=== PATIENT | male | born 1995 | race Caucasian/White ===

== ENCOUNTER 2022-07-24 16:37 | Emergency (ER) | payer OTHER, SELFPAY ==
--- NOTE | ~2022-07-24 | XR_ITS ---
XR hand LT min 3V DATE: 07/24/2022 17:59 INDICATION: Hand injury one week ago. Metatarsal swelling TECHNIQUE: 3 views COMPARISON: None FINDINGS: No fracture, dislocation, periosteal reaction or bone destruction is detected. IMPRESSION: Negative Reviewed, dictated and finalized at location A. IMPRESSION: Negative
[2022-07-24 17:05] VITALS: BP 136/86; PULSE 80; RESP 18; TEMP 36.5; O2SAT 96
--- NOTE | 2022-07-24 18:10 | ED_ITS ---
HPI - Extremity Injury (Upper) General Chief Complaint: Extremity Injury, Upper Stated Complaint: left hand pain Time Seen by Provider: 07/24/22 16:49 History of Present Illness HPI narrative: 27-year-old male presents to the emergency room with complaints of left hand pain. Patient states that he and many he attempted to stop a refrigerator from falling backwards onto him. States he hyperextended his left hand. Injury occurred over a week ago. Denies taking any [id number] medications to alleviate his symptoms. Related Data Allergies Allergy/AdvReac Type Severity Reaction Status Date / Time No Known Allergies Allergy Verified 07/24/22 16:38 Review of Systems Review of Systems: CONSTITUTIONAL: Denies fever, chills, or sweats. EYES: Denies visual changes, redness, or discharge. ENT: Denies rhinorrhea, congestion, sore throat, or otalgia. CARDIOVASCULAR: Denies chest pain, palpitations, or edema. RESPIRATORY: Denies cough or dyspnea. GASTROINTESTINAL: Denies abdominal pain, nausea, vomiting, or diarrhea. GENITOURINARY: Denies dysuria or hematuria. SKIN: Denies rash or itching. MUSCULOSKELETAL: Reports left hand pain NEUROLOGIC: Denies headache, numbness, dizziness, or weakness. PSYCHIATRIC: Denies anxiety or depression. Exam Narrative: GENERAL: Well-appearing, well-nourished, no physical limitations, and in no acute distress. HEAD: Normocephalic, atraumatic. EYES: Conjunctivae normal, PERRLA and EOMI. CHEST: Clear to auscultation. No respiratory distress. No wheezes rales or rhonchi. HEART: Regular rate and rhythm. No murmur heard. Normal peripheral pulses. EXTREMITIES: left hand: +TTP over the 3rd and 4th metacarpals with STS. No obvious abnormalities, no ecchymosis, full range of motion. Neurovascular is intact distally SKIN: Warm, dry, no rash. No noted wounds NEURO: No focal deficits. Alert and oriented x3. MAEW. CN's II-XI intact bilaterally, normal gait PSYCH: Cooperative. Normal mood and affect. Course Vital Signs Vital signs: Vital Signs Temperature 36.5 C 07/24/22 17:05 Pulse Rate 80 07/24/22 17:05 Respiratory Rate 18 07/24/22 17:05 Blood Pressure 136/86 07/24/22 17:05 Pulse Oximetry 96 07/24/22 17:05 Temperature 36.5 C 07/24/22 17:05 Pulse Rate 80 07/24/22 17:05 Respiratory Rate 18 07/24/22 17:05 Blood Pressure 136/86 07/24/22 17:05 Pulse Oximetry 96 07/24/22 17:05 Discharge Plan Discharge Clinical Impression: Sprain and strain of left hand Patient Disposition: Home, Self-Care Condition: Stable Instructions: Antibiotic Form, Hand Sprain (ED) Follow-up/Referrals: PHYSICIAN,PACKAGING MECHANIC [Primary Care Provider] - Time of Disposition: 18:19
== END 2022-07-24 18:35 | disposition home or self-care (01) ==
LOC: ANHED 18:30
PROVIDERS: Emergency Provider Nurse Practitioner Family
DX: S63.92XA Sprain of unspecified part of left wrist and hand, initial encounter (principal); T14.90XA Injury, unspecified, initial encounter
CPT/HCPCS: 73130; 99283

== ENCOUNTER 2024-12-21 14:41 | Outpatient (CLI) | payer OTHER, SELFPAY ==
--- OUTSIDE RECORDS SUMMARY | 2024-12-21 14:44 | XMS_ITS | Clinical Summary ---
Author Organization [facility] Address [address] [place] [id number] Care Team Providers Care Night Shift Manager Name Role Phone None, Provider MD Primary Care Provider Unavaila ble Allergies No known active allergies Medications No known medications Family History Medical History Relation Comments Mental Health Mother Thyroid Disease Mother Relation Status Comments Mother Social History Tobacco Use Types Packs/Day Years Used Date Smoking Tobacco: Never Smokeless Tobacco: Never Sex and Gender Information Value Date Recorded Sex Assigned at Male 11/09/2020 10:55 PM CDT Legal Sex Male 4:50 PM CDT Gender Identity Male 11/09/2020 10:55 PM CDT Sexual Orientation Straight 11/09/2020 10 :55 PM CDT Last Filed Vital Signs Vital Sign Reading Time Taken Comments Blood Pressure 141/94 05/20/2023 6:53 PM [employer]ANSIT OPERATIONS SUPERVISOR Pulse 90 05/20/2023 6:53 PM [employer]IT OPERATIONS SUPERVISOR Temperature 36.6 C (97.9 F) 05/20/2023 6:53 PM [employer]IT OPERATIONS SUPERVISOR Respiratory Rate 18 05/20/2023 6:53 PM [employer]IT OPERATIONS SUPERVISOR Oxygen Saturation 98% 05/20/2023 6:53 PM [employer] OPERATIONS SUPERVISOR Inhaled Oxygen Concentration - - Weight 154.2 kg (340 lb) 05/20/2023 6:53 PM [employer]IT OPERATIONS SUPERVISOR Height 193 cm (6' 4) 05/20/2023 6:53 PM TR[employer]IT OPERATIONS SUPERVISOR Body Mass Index 41.39 05/20/2023 6:53 PM [employer]ANSIT OPERATIONS SUPERVISOR Plan of Treatment Health Maintenance Due Date Last Done Comments Annual Physical 2000 Hepatitis C 2015 DTaP, Tdap and Td Vaccines ( 1 - Tdap) 2016 Hepatitis B Vaccines (1 of 3 - 19+ 3-dose series) 2016 COVID-19 Vaccine (2023-2 5 season) 2024 HPV Vaccines (1 - 3-dose SCD M series) 2024 Meningococcal B Vaccine Aged Out No l onger eligible based on patient's age to complete this topic Meningococcal Vaccine Aged Out No rosa cora eligible based on patient's age to complete this topic Pneumococcal Vaccine: Pediat rics (0 to 5 Years) and At-Risk Patients (6 to 49 Years) Aged Out No longer eligible b ased on patient's age to complete this topic RSV Immunizations Under 20 Months Aged Out No longer eligible based on patient's age to complete this topic Insurance Care Teams Night Shift Manager Relationship Specialty Start Date End Date None, Provider, PCP - General 01/31/20
[2024-12-21 18:46] LABS: Hematocrit 43.2 % (42.0-52.0); Hemoglobin 14.7 g/dL (14.0-18.0); Mean Corpuscular HGB Conc 34.0 g/dl (32-36); Mean Corpuscular Hemoglobin 29.6 pg (26-34); Mean Corpuscular Volume 86.9 fl (80-100); Platelet Count Result 276 k/mm3 (150-375); Red Blood Count 4.97 M/mm3 (4.6-6.20); White Blood Count 8.9 K/mm3 (4.5-10.0)
[2024-12-21 18:56] LABS: Alanine Aminotransferase 42 U/L (6-50); Albumin Level 4.5 g/dL (3.5-5.1); Alkaline Phosphatase 58 U/L (38-126); Anion Gap 9 mmol/L (4-12); Aspartate Amino Transferase 36 U/L (17-59); Bilirubin,Total 0.7 mg/dL (0.2-1.3); Blood Urea Nitrogen 8 mg/dL (9-20); Calcium 9.3 mg/dL (8.4-10.2); Carbon Dioxide 27 mmol/L (22-30); Chloride 100 mmol/L (98-107); Cholesterol 156 mg/dL (0-200); Estimated Glomerular Filt Rate > 60; Glucose 86 mg/dL (65-110); HDL Direct 32 mg/dL; Potassium 3.8 mmol/L (3.4-5.0); Sodium 136 mmol/L (137-145); Total Protein 7.4 g/dL (6.3-8.2); Triglycerides 239 mg/dL (<150)
[2024-12-21 19:33] LABS: Thyroid Stimulating Hormone 1.530 uIU/mL (0.465-4.680)
== END 2024-12-21 14:42 | disposition home or self-care (01) ==
LOC: ANHGOSHLAB 14:42
PROVIDERS: PCP Nurse Practitioner; Visit Provider Nurse Practitioner
DX: F90.9 Attention-deficit hyperactivity disorder, unspecified type (principal); Z76.89 Persons encountering health services in other specified circumstances
CPT/HCPCS: 36415; 80053; 80061; 84443; 85027